=== PATIENT | male | born 1960 | race Caucasian/White ===

== ENCOUNTER 2018-03-22 08:16 | Outpatient (CLI) | payer OTHER ==
[~2018-03-22 08:16] MED LIST: DIAZEPAM10 MG; NABUMETONE750 MG; ORPH100T PO; ULTRACET
== END 2018-03-22 08:22 | disposition home or self-care (01) ==
LOC: RAD 08:16
DX: R10.13 Epigastric pain (principal); K21.9 Gastro-esophageal reflux disease without esophagitis